=== PATIENT | male | born 2000 | race Caucasian/White ===

== ENCOUNTER 2023-01-16 23:48 | Emergency (ER) | payer MEDICAID, OTHER ==
[~2023-01-16] VITALS: Ht 193 cm; Wt 89.5 kg
[2023-01-17 00:08] VITALS: BP 123/73; PULSE 78; RESP 20; TEMP 98.2; O2SAT 100
[2023-01-17 00:55] LABS: CLARITY URINE CLEAR (CLEAR); COLOR URINE YELLOW (YELLOW); GLUCOSE URINE NEGATIVE (NEGATIVE); KETONES URINE NEGATIVE (NEGATIVE); LEUKOCYTE ESTERASE URINE NEGATIVE (NEGATIVE); NITRITE URINE NEGATIVE (NEGATIVE); OCCULT BLOOD URINE NEGATIVE (NEGATIVE); PH URINE 6.5 (4.5-8.0); PROTEIN URINE NEGATIVE (NEGATIVE); SPECIFIC GRAVITY URINE 1.026 (1.005-1.030)
== END 2023-01-17 01:20 | disposition home or self-care (01) ==
LOC: ER 23:48
DX: Z20.2 Contact with and (suspected) exposure to infections with a predominantly sexual mode of transmission (principal)
CPT/HCPCS: 81003; 99283